=== PATIENT | male | born 1965 | race Native Hawaiian/Other Pacific Islander ===

== ENCOUNTER 2020-04-04 18:34 | Emergency (ER) | payer BC ==
[~2020-04-04] VITALS: Ht 152.4 cm; Wt 96.6 kg
[2020-04-04 20:56] LABS: PLATELET COUNT 236 K/uL (142-355)
[2020-04-04 22:42] VITALS: BP 144/88; TEMP 98.4
== END 2020-04-04 22:42 | disposition home or self-care (01) ==
LOC: ED 18:34
PROVIDERS: Emergency Medicine Emergency Medical Services
DX: K52.89 Other specified noninfective gastroenteritis and colitis (principal)
CPT/HCPCS: 36415; 80053; 83690; 85027; 96374; 99284; J2405